=== PATIENT | female | born 1995 | race Two or more races ===

== ENCOUNTER 2024-09-09 03:08 | Emergency (ER) | payer OTHER ==
[~2024-09-09] VITALS: Ht 167.6 cm; Wt 80.3 kg
[2024-09-09] MEDS ORDERED: RINGERS SOLUTION,LACTATED 1,000 ML IV ONE (04:15)
[2024-09-09 05:54] LABS: HEMATOCRIT 39.4 % (36.0-45.00); HEMOGLOBIN 13.6 g/dL (12.0-15.00); MEAN CELL VOLUME 90.7 fL (80.00-100.00); MEAN CORPUSCULAR HEMOGLOBIN 31.4 pg (27.00-32.0); MEAN CORPUSCULAR HGB CONC 34.6 g/dl (32.0-36.0); PLATELET COUNT 138 K/uL (150-450); RED BLOOD COUNT 4.34 M/uL (4.00-6.00); RED CELL DISTRIBUTION WIDTH 13.4 % (11.5-14.5)
[2024-09-09 06:27] LABS: INR 1.02; PARTIAL THROMBOPLASTIN TIME 24.5 SECONDS (22.0-34.0); PROTHROMBIN TIME 11.1 SECONDS (9.0-11.5)
[2024-09-09 06:52] LABS: CALCIUM 9.5 mg/dL (8.5-10.1); CREATININE SERUM 0.54 mg/dL (0.55-1.02); GFR 135.42; POTASSIUM 3.76 mEq/L (3.5-5.1)
[2024-09-09 07:37] LABS: URINE APPEARANCE Clear; URINE BILIRRUBIN Negative (NEGATIVE); URINE BLOOD Large; URINE COLOR Yellow; URINE GLUCOSE Negative (NEGATIVE); URINE KETONE Negative (NEGATIVE); URINE LEUKOCYTE Negative; URINE NITRATE Negative; URINE PROTEIN Negative (NEGATIVE); URINE UROBILINOGEN 0.2 E.U./dl
[2024-09-09 07:41] LABS: URINE BACTERIA 29.3 uL (0.0-1933); URINE EPITHELIAL CELLS 5.3 uL (0.0-38.8); URINE RBC 146.7 uL (0.0-20.8); URINE WBC 3.1 uL (0.0-23.2)
[2024-09-09 08:04] LABS: URINE CAST 0.14 uL (0.0-1.40)
== END 2024-09-09 11:11 | disposition home or self-care (01) ==
LOC: ER 03:09
PROVIDERS: General Practice
DX: O20.8 Other hemorrhage in early pregnancy (principal); Z91.013 Allergy to seafood; Z3A.09 9 weeks gestation of pregnancy

== ENCOUNTER 2024-11-27 19:50 | Emergency (ER) | payer OTHER ==
[~2024-11-27] VITALS: Ht 167.6 cm; Wt 78.9 kg
[2024-11-27] MEDS ORDERED: PRENATAL + DHA1 EAC1 (20:30)
[2024-11-27] MEDS ORDERED: CEFTRIAXONE SODIUM 1,000 MG VIAL IM STA (20:51)
[2024-11-27] MEDS ORDERED: CEFTRIAXONE SODIUM 1,000 MG VIAL ONE (20:52)
[2024-11-27 21:12] LABS: BASO % 0.2 % (0.1-1.2); EOS # 0.03 (0.04-0.54); EOS % 0.3 % (0.7-7.0); LYMPH # 1.23 (1.18-3.74); LYMPH % 13.9 % (19.3-53.1); MEAN PLATELET VOLUME 12.00 fl (9.4-12.4); MONO # 0.45 (0.24-0.82); MONO % 5.1 % (4.7-12.5); NEUT # 7.09 (1.56-6.13); NEUT % 79.9 % (34.0-71.1); RED CELL DISTRIBUTION WIDTH 12.3 % (11.6-14.4)
[2024-11-27 22:15] LABS: COVID-19 AG NEGATIVE (NEGATIVE)
== END 2024-11-27 22:36 | disposition home or self-care (01) ==
LOC: ER 20:45
PROVIDERS: General Practice
DX: Z34.90 Encounter for supervision of normal pregnancy, unspecified, unspecified trimester (principal); Z3A.21 21 weeks gestation of pregnancy; J02.9 Acute pharyngitis, unspecified; Z20.822 Contact with and (suspected) exposure to COVID-19; Z91.013 Allergy to seafood

== ENCOUNTER 2025-03-23 22:34 | Outpatient (CLI) | payer OTHER ==
[~2025-03-23] VITALS: Ht 167.6 cm; Wt 91.6 kg
[2025-03-23 21:38] VITALS: BP 112/72; O2SAT 97
[~2025-03-23 22:34] MED LIST: PRENATAL + DHA1 EAC1
[2025-03-23] MEDS ORDERED: IRON236 MG PO (22:43)
[2025-03-23] MEDS ORDERED: RINGERS SOLUTION,LACTATED 1,000 ML IV SCH (22:45)
[2025-03-23 23:25] VITALS: BP 111/69
[2025-03-24 04:55] VITALS: BP 104/65
[2025-03-24 06:44] VITALS: BP 95/55; O2SAT 97
[2025-03-24 09:01] LABS: BASO % 0.5 % (0.1-1.2); EOS # 0.08 (0.04-0.54); EOS % 1.3 % (0.7-7.0); LYMPH # 1.65 (1.18-3.74); LYMPH % 26.7 % (19.3-53.1); MEAN PLATELET VOLUME 12.90 fl (9.4-12.4); MONO # 0.39 (0.24-0.82); MONO % 6.3 % (4.7-12.5); NEUT # 3.98 (1.56-6.13); NEUT % 64.4 % (34.0-71.1); RED CELL DISTRIBUTION WIDTH 12.6 % (11.6-14.4)
[2025-03-24 11:52] VITALS: BP 120/78
== END 2025-03-24 14:10 | disposition home or self-care (01) ==
LOC: OBS/DEL 22:34
PROVIDERS: ATTEND Specialist
DX: O46.93 Antepartum hemorrhage, unspecified, third trimester (principal); O26.843 Uterine size-date discrepancy, third trimester; O36.8130 Decreased fetal movements, third trimester, not applicable or unspecified; O26.853 Spotting complicating pregnancy, third trimester; Z3A.36 36 weeks gestation of pregnancy

== ENCOUNTER 2025-04-12 13:18 | Inpatient (IN) | payer OTHER ==
[~2025-04-12] VITALS: Ht 167.6 cm; Wt 92.1 kg
[2025-04-12] VITALS (7 sets, daily range): BP systolic 113–148; BP diastolic 62–84
[~2025-04-12 13:18] MED LIST changes: +IRON236 MG PO
[2025-04-12] MEDS ORDERED: RINGERS SOLUTION,LACTATED 1,000 ML IV SCH (13:45)
[2025-04-12 15:08] LABS: URINE APPEARANCE Clear; URINE BILIRRUBIN Negative (NEGATIVE); URINE BLOOD Small; URINE COLOR Yellow; URINE GLUCOSE Negative (NEGATIVE); URINE KETONE Negative (NEGATIVE); URINE LEUKOCYTE Trace; URINE NITRATE Negative; URINE PROTEIN Negative (NEGATIVE); URINE UROBILINOGEN 0.2 E.U./dl
[2025-04-12 15:11] LABS: URINE EPITHELIAL CELLS 46.1 uL (0.0-38.8); URINE RBC 2.9 uL (0.0-20.8); URINE WBC 16.4 uL (0.0-23.2)
[2025-04-12 15:14] LABS: URINE CAST 0.14 uL (0.0-1.40)
[2025-04-12 15:34] LABS: BASO % 0.3 % (0.1-1.2); EOS # 0.05 (0.04-0.54); EOS % 0.8 % (0.7-7.0); LYMPH # 1.21 (1.18-3.74); LYMPH % 18.3 % (19.3-53.1); MEAN PLATELET VOLUME 13.90 fl (9.4-12.4); MONO # 0.24 (0.24-0.82); MONO % 3.6 % (4.7-12.5); NEUT # 5.04 (1.56-6.13); NEUT % 76.2 % (34.0-71.1); RED CELL DISTRIBUTION WIDTH 12.6 % (11.6-14.4)
[2025-04-12 15:41] LABS: INR 0.94
[2025-04-12 15:47] LABS: ALT/SGPT 41.0 U/L (12-78); AST/SGOT 18.0 U/L (15-37); BILIRUBIN TOTAL 0.31 mg/dL (0.3-1.2); BUN CREA RATIO 14.0 (7.0-25.0); CREATININE SERUM 0.64 mg/dL (0.55-1.02); GFR 111.31; GLOBULINA 3.7 G/DL (2.4-3.5); GLUCOSE FASTING 129.0 mg/dL (65-100); OSMOLALITY SERUM 280.0 MOSM/KG (275-295)
[2025-04-12] MEDS ORDERED: OXYTOCIN 500 ML IV SCH (16:45)
[2025-04-12] MEDS ORDERED: MORPHINE SULFATE 4 MG/ML CARTRIDGE IV ONE (18:00)
[2025-04-12] MEDS ORDERED: ERYTHROMYCIN BASE OPHT 1GM EACH TUBE OP ONE (18:17)
[2025-04-12] MEDS ORDERED: OXYTOCIN 20 UNITS/1000ML RL PIGGYBAG IV ONE (18:17)
[2025-04-12] MEDS ORDERED: LIDOCAINE HCL 1% 10ML VIAL ONE (18:17)
[2025-04-12] MEDS ORDERED: CHLORHEXIDINE GLUCONATE 120 ML BOTTLE TOP ONE ×2 (18:17→20:45)
[2025-04-13 00:48] VITALS: BP 132/72
[2025-04-13 09:14] VITALS: BP 110/70
[2025-04-13 14:49] LABS: BASO % 0.4 % (0.1-1.2); EOS # 0.07 (0.04-0.54); EOS % 0.9 % (0.7-7.0); LYMPH # 1.32 (1.18-3.74); LYMPH % 17.3 % (19.3-53.1); MEAN PLATELET VOLUME 13.70 fl (9.4-12.4); MONO # 0.37 (0.24-0.82); MONO % 4.8 % (4.7-12.5); NEUT # 5.80 (1.56-6.13); NEUT % 75.8 % (34.0-71.1); RED CELL DISTRIBUTION WIDTH 12.5 % (11.6-14.4)
[2025-04-13 16:00] VITALS: BP 117/71
[2025-04-14 00:09] VITALS: BP 124/75
[2025-04-14 08:00] VITALS: BP 100/60
[2025-04-14] MEDS ORDERED: MEASLES,MUMPS,RUBELLA VACC/PF 1 VIAL VIAL SUBCUTANEO ONE (12:00)
== END 2025-04-14 17:13 | disposition home or self-care (01) | DRG 807 ==
LOC: LDR 13:18 → OB/GYN 20:38
PROVIDERS: Obstetrics & Gynecology; ADMIT Specialist; ATTEND Specialist
PROC: 10E0XZZ Delivery of Products of Conception, External Approach (ICD-10-PCS; principal; 2025-04-12)
PROC: 0UQG7ZZ Repair Vagina, Via Natural or Artificial Opening (ICD-10-PCS; 2025-04-12)
PROC: 4A1HXCZ Monitoring of Products of Conception, Cardiac Rate, External Approach (ICD-10-PCS; 2025-04-12)
DX: O71.4 Obstetric high vaginal laceration alone (principal); Z37.0 Single live birth; Z3A.39 39 weeks gestation of pregnancy